=== PATIENT | male | born 1990 ===

== ENCOUNTER 2024-11-20 21:15 | Emergency (ER) | payer OTHER, SELFPAY ==
[2024-11-20 21:18] VITALS: BP 123/82
[2024-11-20 21:41] VITALS: BMI 26.4
--- NOTE | 2024-11-20 21:50 | ED.GENMED ---
History of Present Illness
General
Chief Complaint: Back Pain
Source: patient
Exam Limitations: none
Time Seen by Provider: 11/20/24 21:43
Nursing documentation reviewed up to this point in time: agreed with
History of Present Illness
History of Present Illness:
This is a 34-year-old male with no past medical history presents emergency department today with concerns of low back pain for the past 3 days. Patient states that he is currently in the process of moving moving and has been lifting heavy boxes and
reports that his low back started to feel sore. Patient reports that today, he was in the grocery store when he went to bend over and noticed that the pain became a lot more sharp and became a lot worse. Patient states that he feels that the pain
in a band across his low back. Patient states that the pain does not radiate down the leg or to the abdomen. Patient denies any hematuria. Patient denies any fevers or chills. Patient denies any genital paresthesias, urinary or fecal
incontinence. Patient denies any lower extremity paresthesias, any weakness with walking, any difficulty ambulating. Patient denies any fevers or chills. Patient denies any nausea or vomiting.
Review of Systems
Review of Systems
All Other Systems: ROS reviewed and negative except as documented in HPI and ROS
Phy Exam
Physical Exam
Physical Exam:
General: Patient is well appearing and in no acute distress; non-toxic
Skin: Warm and dry, no rashes or lesions
Head: Normocephalic, atraumatic
Eyes: Sclera non-icteric. EOMs intact.
Cardiac: Regular rate and rhythm, no murmurs
Pulm: Normal respiratory effort
Abdomen: No CVA tenderness. No abdominal tenderness to palpation.
Musculoskeletal: Bilateral paralumbar spinal tenderness to palpation noted. No midline spinal tenderness. 5/5 strength in bilateral lower extremities.
Neuro: CN II-XII intact, no focal neurologic deficits.
Psychiatric: Appropriate mood and affect.
Course
Orders/Labs/Results
Orders:
Orders
11/20/24 22:03
Ketorolac [Toradol] 30 mg IM NOW STA
Vital Signs
Initial and Last Documented VS:
Initial Vital Signs
Temp Pulse Resp BP Pulse Ox
98.2 F 73 16 123/82 98
11/20/24 21:18 11/20/24 21:18 11/20/24 21:18 11/20/24 21:18 11/20/24 21:18
Last Documented Vital Signs
Temp Pulse Resp BP Pulse Ox
97.5 F 65 16 144/65 95
11/20/24 23:52 11/20/24 23:52 11/20/24 23:52 11/20/24 23:52 11/20/24 23:52
MDM/Problems Addressed
Differential Diagnosis Includes:
ddx include lumbar sprain, osteoarthritis, herniated nucleus pulposus
MDM/Problems Addressed:
34-year-old male presents emergency department today with concerns of low back pain. This has been going on the past few days. Patient states it started after lifting heavy boxes. He states that the pain is worse with movement and the pain gets
better if he stays still. Patient denies any fevers or chills, loss of bowel or bladder, lower extremity paresthesias, difficulty ambulating, hematuria. History of physical exam consistent with lumbar strain. Patient given Toradol shot in the ER
with some relief. Will trial lichen patches and Medrol Dosepak as well. Patient stable for discharge.
*Pulse Oximetry
Patient hypoxic: no
*Critical Care Note
Total Time (30-74mins, 75-104mins- exclusive of procedures): Not Applicable
Data Reviewed
Review of Other/Old Records Reveals: Records (No previous ER physician documentation to review)
Patient Management
Escalation/DeEscalation of care consider admission/obs:
admit not indicated patient stable for discharge
ED Attending Note
-
Portions of this chart may have been created with voice recognition software.� Occasional wrong word or��sound alike� substitutions may have occurred due to the inherent limitations of voice recognition software.
Discharge Plan
Departure
Patient Disposition: Home (Routine Discharge)
Date of Disposition: 11/20/24
Time of Disposition: 23:32
Patient with high blood pressure during this ER visit?: No
Condition: Good
Discharge Problem:
Strain of lumbar paraspinal muscle
Instructions: Back exercises, Low back pain - Discharge instructions
Prescriptions:
New
lidocaine 5 % adhesive patch,medicated
1 patch topical DAILY Qty: 15 0RF
methylprednisolone [Medrol (Alejandro)] 4 mg tablets,dose pack
See Rx Instructions .ROUTE .COMPLEX Qty: 21 0RF
Rx Instructions:
orally per package directions
Referrals:
Dennis Murdock MD [Active] - Call in 1-3 days for appt
Activity Restrictions/Additional Instructions:
Medrol Dosepak has been sent to your pharmacy. You can start taking this tomorrow. Please do not take NSAIDs like ibuprofen while taking this medication.
Lidocaine patches also been sent to your pharmacy. You can apply 1 patch over the affected area once daily and remove after 12 hours.
PLEASE RETURN EMERGENCY DEPARTMENT SHOULD HE DEVELOP NUMBNESS OR TINGLING IN YOUR GENITAL AREA, WEAKNESS IN YOUR LOWER EXTREMITIES, DIFFICULTY AMBULATING, URINARY OR FECAL INCONTINENCE, FEVERS OR CHILLS, OR ANY OTHER SIGNS OR SYMPTOMS WORRISOME TO
YOU.
Interventions
Interventions:
*Risk Screen - Suicide Last Done: 11/20/24 21:18
*General Assessment Last Done: 11/20/24 21:41
*Neglect/Abuse Screening Last Done: 11/20/24 21:18
*ED- Fall Risk Assessment Last Done: 11/20/24 21:41
*ED COVID-19 Vaccine History Last Done: 11/20/24 21:41
*Nursing Disposition Last Done: 11/20/24 23:52
ED-Musculoskeletal Assessment Last Done: 11/20/24 21:41
Discharge Date and Time
Discharge Date/Time: 11/20/24 23:55
Print Language: MONEGASQUE
[2024-11-20] MEDS: TORADOL 30 MG IM (22:20)
[2024-11-20 23:52] VITALS: BP 144/65
== END 2024-11-20 23:55 | disposition home or self-care (01) ==
LOC: EMR 21:15
PROVIDERS: EMERGENCY PHYSICIAN Emergency Medicine; FAMILY PHYSICIAN Family Medicine
DX: S39.012A Strain of muscle, fascia and tendon of lower back, initial encounter (principal); X58.XXXA Exposure to other specified factors, initial encounter
CPT/HCPCS: 99282; 96372

== ENCOUNTER → 2024-12-04 14:10 | Outpatient (REF) | payer OTHER, SELFPAY | LOC: PAVMRI 14:10 | PROVIDERS: ATTENDING PHYSICIAN Physician Assistant; FAMILY PHYSICIAN Internal Medicine | DX: M54.16 Radiculopathy, lumbar region (principal) | CPT/HCPCS: 72148 ==